=== PATIENT | female | born 1965 | race Caucasian/White ===

== ENCOUNTER 2016-12-28 05:45 | Day surgery (SDC) | payer BC ==
[2016-12-26 13:09] LABS: HEMOGLOBIN 13.5 g/dL (12.0-16.0)
[2016-12-26 13:15] LABS: HEMATOCRIT 40.9 % (36.0-48.0)
[2016-12-26 13:16] LABS: PARTIAL THROMBO TIME 30.5 SEC (22.5-37.2)
--- NOTE | ~2016-12-28 | OP ---
Record Of Operation [facility] [address] [place]. [address] NAME: ABHIJIT REYNOSO : 69 STATUS : REG [facility] PAT#: [id number] AGE: 51 ADM/REG DATE : 12/28/16 MR#: [id number] REPORT SERV DATE: 12/28/16 DICTATED BY: CLAUDIA GREENFIELD DATE: 12/28/16 REPORT STATUS : Draft TRANSCRIBED BY: MODL DATE: 12/28/16 DATE OF PROCEDURE: 12/28/2016 PREOPERATIVE DIAGNOSES: 1. Chronic rhinosinusitis. 2. Nasal polyposis. POSTOPERATIVE DIAGNOSES: 1. Chronic rhinosinusitis. 2. Nasal polyposis. 3. Allergic fungal sinusitis. SURGEON: Claudia Greenfield M.D. ANESTHESIA: General endotracheal anesthesia was utilized. COMPLICATIONS: None. ESTIMATED BLOOD LOSS: 25 mL. FLUIDS: 650 mL. FINDINGS: A fungal ball or mucinous debris was noted in the maxillary sinus and entering into the ethmoid sinuses, a great deal of nasal polyposis and the middle turbinate was scarred to the lateral wall. INDICATIONS FOR PROCEDURE: This is a 51-year-old female with a history of previous endoscopic sinus surgery 23 years ago, now has recurrent and recalcitrant chronic rhinosinusitis and the left nasal polyposis. After steroids and a period of antibiotics, image-guided CT scan was performed at [facility], showing opacification of her left maxillary sinus with calcified debris and opacification of her ethmoid sinuses with polypoid change noted in the nasal cavity, which mirrored her endoscopic exam. In the clinic, she has indications for procedure described. Described the risks and benefits of procedure including blood loss, infection, risk of anesthesia, pain and bleeding postoperatively, CSF leak, injury to the orbit, and recurrent polyposis and disease. She voiced understanding and signed the consent. The consent was placed on chart at the time of operation. PROCEDURE IN DETAIL: The patient was wheeled to the OR suite and placed on the OR table in supine position. She was intubated and placed under general endotracheal anesthesia without difficulty using an oral NEO tube, and the table was turned 90 degrees and she was prepped and draped in the standard fashion for image-guided endoscopic sinus surgery. She had been sprayed in her nasal cavity with Afrin spray 30 minutes prior to the procedure. I would spray again just after intubation. I would place 4% cocaine-soaked cottonoids in each side of the nasal cavity for three minutes to five minutes. At the beginning the procedure, I would remove the cottonoids and then using the 0-degree endoscope, I looked into nasal cavity on the left hand side. I would inject along the polyps and middle turbinate using 2 Record Of Operation [facility] [address] [place]. [address] NAME: ABHIJIT REYNOSO : 69 STATUS : REG [facility] PAT#: [id number] AGE: 51 ADM/REG DATE : 12/28/16 MR#: [id number] REPORT SERV DATE: 12/28/16 DICTATED BY: CLAUDIA GREENFIELD DATE: 12/28/16 REPORT STATUS : Draft TRANSCRIBED BY: BETY DATE: 12/28/16 mL of 1% lidocaine and 1:100,000 epinephrine. Using a [place], I tried to medialize the middle turbinate, but this was scarred to the lateral nasal cavity wall, so I would first remove the polyps from the nasal cavity in the area of the middle meatus at its entry. I would then take a [place] and divide the synechia between the turbinate and the wall. I then medialized the middle turbinate further. I would go back with the image-guided microdebrider and remove the rest of the polypoid tissue from middle meatus. As I got back into the area of the maxillary sinus, I quickly noted an expansive mass of allergic fungal mucin or fungal ball, expanding from the maxillary sinus into the ethmoid cavity, so I spent some time removing this debris and then irrigating all of this out. There was a good deal of severe mucosal polypoid thickening in the maxillary sinuses and this was removed. I would inject along the posterior fontanelle area back into the ethmoid cavity as well using local with a spinal needle for a total of 4 mL of 1% lidocaine and 1:100,000 epinephrine. I would further medialize middle turbinate at this point and remove the polyps from the ethmoid cavity back into the posterior ethmoid air cells as well. There was some debris within these areas and this was removed and irrigated copiously as well. Using the straight probe with the image guidance system, I probed the contents of the ethmoid cavity and the boundaries. The skull base was exposed. The lamina papyracea was exposed as well as the middle turbinate, and I was confident that I got a quantitative removal of the polyps in these areas. At this point, I went about removing any further polypoid tissue from the posterior nasal cavity along the middle turbinate inferiorly. I then cauterized this using a suction Bovie set on 20. There was no further bleeding from this area. I once again irrigated out the maxillary sinus, removing any residual polyp tissue from there, and achieved hemostasis. At this point, I suctioned all areas. I would place a large Propel stent in the ethmoid cavity coming out, dividing the middle turbinate from the lateral wall. There was good hemostasis. At this point, the procedure was complete. She was turned 90 degrees, returned to the care of the anesthesiologist and subsequently awoken, extubated, and stably transferred to the recovery area. Estimated blood loss was 25 mL. No complications. The patient tolerated the procedure well. DEBBIE/BETY Claudia Greenfield M.D. / [id number] CC: María Elena Multani M.D.
[~2016-12-28 05:45] MED LIST: VALTREX5 PO
== END 2016-12-28 15:37 | disposition home or self-care (01) ==
LOC: SDC 05:45
PROVIDERS: Otolaryngology
PROC: 09BQ4ZZ Excision of Right Maxillary Sinus, Percutaneous Endoscopic Approach (ICD-10-PCS; principal; 2016-12-28 07:15)
PROC: 099R4ZZ Drainage of Left Maxillary Sinus, Percutaneous Endoscopic Approach (ICD-10-PCS; 2016-12-28 07:15)
DX: J01.00 Acute maxillary sinusitis, unspecified (principal); J32.0 Chronic maxillary sinusitis; J33.9 Nasal polyp, unspecified; M19.90 Unspecified osteoarthritis, unspecified site; K58.9 Irritable bowel syndrome, unspecified; Z88.2 Allergy status to sulfonamides; Z88.8 Allergy status to other drugs, medicaments and biological substances; Z79.899 Other long term (current) drug therapy; Z88.5 Allergy status to narcotic agent; Z98.890 Other specified postprocedural states
CPT/HCPCS: 84703; 85014; 85018; 85730; 88305; 88312; A9270-GY; C2625; J0690; J2250; J2270; J2405; J2550; J2710; J3010